=== PATIENT | female | born 1965 | race Caucasian/White ===

== ENCOUNTER 2017-01-09 09:46 | Emergency (ER) | payer BC ==
[~2017-01-09] VITALS: Ht 165.1 cm; Wt 62.0 kg
[~2017-01-09 09:46] MED LIST: ATOR20TA38 PO; GABA100C14 PO; HYDR-3498 PO; HYDR-3720 PO; ONDA4TAB35 PO; TAMS-14 PO
[2017-01-09 09:49] VITALS: Ht 165.1 cm; Wt 62.0 kg
[2017-01-09] MEDS ORDERED: ONDANSETRON (ODT) 4 MG TAB ODT STA ×2 (10:27→11:51)
[2017-01-09] MEDS ORDERED: HYDROmorphONE 1 MG/ML SYG IM STA ×2 (10:27→11:51)
[2017-01-09] MEDS ORDERED: DEXAMETHASONE 10 MG/ML 1 ML INJ IM ONE (10:30)
--- NOTE | 2017-01-09 11:03 | RADRPT ---
PROCEDURE: CT Cervical Spine without contrast. CLINICAL INDICATION: Right-sided radiculopathy. TECHNIQUE: A CT of the cervical spine was performed on a [employer] 64-slice CT scanner uti lizing thin section axial images from the skull base through the thoracic inlet. Sagittal and coron al reformatted images were made. The CTDIvol is 22.3 mGy and the DLP is 506.1 mGycm. COMPARISON: No. FINDINGS: The fourth ventricle and cerebellum are unremarkable. The base of the skull and mastoid air cells a re normal. C1 and C2 are intact. No fracture is evident. There are degenerative changes around the atlanto-axial joint with spurs noted off the superior aspects of the anterior arch of C1 and ventral superior aspect of the odontoid process. C2-3: The disc is normal in height. No significant disk bulge or protrusion is evident. There is no central canal stenosis or foraminal narrowing. C3 is unremarkable. C3-4: The disc is normal in height. No significant disk bulge or protrusion is evident. There is no central canal stenosis or foraminal narrowing. C4 is unremarkable. C4-5: The disc is normal in height. No significant disk bulge or protrusion is evident. There is no central canal stenosis or foraminal narrowing. C5 is unremarkable. C5-6: The disc is normal in height. No significant disk bulge or protrusion is evident. There is no central canal stenosis or foraminal narrowing. C6 is unremarkable. C6-7: The disc is normal in height. No significant disk bulge or protrusion is evident. There is no central canal stenosis or foraminal narrowing. C7 is unremarkable. C7-T1: The disc is normal in height. No significant disk bulge or protrusion is evident. There is no central canal stenosis or foraminal narrowing. T1 is unremarkable. There is mild ventral spondylosis at T1-2 and at T2-3. The pulmonary vasculature and visible lung fi elds are normal. The soft tissues of the neck are unremarkable. IMPRESSION: 1. No evidence of acute cervical spine fracture. 2. Spondylosis of the upper thoracic spine. RPTAT:AAJJ Reilly Parker, Physician Date Time Electronically viewed and signed by Reilly Parker, Physician on 01/09/2017 11:03 JM/
[2017-01-09] MEDS ORDERED: HYDR-902 PO (11:41)
[2017-01-09] MEDS ORDERED: PRED20TA PO (11:41)
[2017-01-09] MEDS ORDERED: GABA600T PO (11:41)
--- NOTE | 2017-01-09 11:47 | ERD ---
ER Documentation Chief Complaint Date/Time DATE: 01/09/17 TIME: 11:42 Chief Complaint Patient complains of bilateral arm pain HPI This is a 51-year-old female who has had a one-month history of right extremity painful burning that is worse at night with no swelling or weakness. The patient was diagnosed with peripheral neuropathy although she is not diabetic. She is currently taking Neurontin and diclofenac for pain. She describes the pain as a very dull ache with a burning sensation that is worse in the evening located at the right elbow and distally. She has no weakness or swelling. She says on occasion she has the same symptoms in the left upper extremity. No symptoms in the legs. No chest pain shortness of breath diaphoresis. She says the pain is constantly there every day for the past month. ROS All systems reviewed and are negative except as per history of present illness. Medications Home Meds Active Scripts Hydrocodone/Acetaminophen ([place] 10-325 Tablet) 1 Each Tablet, 1 TAB PO Q6H Y for PAIN, #30 TAB Prov:PHAN ANNA DO 01/09/17 Prednisone* (Prednisone*) 20 Mg Tab, 60 MG PO DAILY for 5 Days, TAB Prov:PHAN ANNA DO 01/09/17 Gabapentin* (Neurontin*) 600 Mg Tablet, 600 MG PO TID, #90 TAB Prov:PHAN ANNA DO 01/09/17 Ondansetron Hcl* (Zofran* ODT) 4 mg -ODT Tab.disper, 4 MG PO Q6 Y for NAUSEA AND /OR VOMITING, #10 TAB Prov:PHAN ANNA DO 02/27/16 Hydrocodone Bit-Acetaminophen* (Marion*) 7.5-325 Tablet, 1 TAB PO Q4H Y for PAIN , #14 TAB Prov:PHAN ANNA DO 02/27/16 Tamsulosin Hcl* (Flomax*) 0.4 Mg Cap.er.24h, 0.4 MG PO QPM, #7 CAP Prov:PHAN ANNA DO 02/27/16 Reported Medications Atorvastatin Calcium* (Atorvastatin Calcium*) 20 Mg Tablet, 20 MG PO QHS, #30 TAB 02/27/16 Hydrocodone Bit-Acetaminophen* (Marion*) 5-325 Mg Tab, 1 TAB PO TID Y for PAIN, TAB 02/27/16 Gabapentin* (Gabapentin*) 100 Mg Capsule, 100 MG PO TID, #90 CAP 02/27/16 Allergies Allergies: Coded Allergies: No Known Allergies (Verified Allergy, Mild, 02/27/16) PMhx/Soc History of Surgery: No Anesthesia Reaction: No Hx Neurological Disorder: No Hx Respiratory Disorders: No Hx Cardiac Disorders: No Hx Psychiatric Problems: No Hx Miscellaneous Medical Probl: Yes (mute) Hx Alcohol Use: No Hx Substance Use: No Hx Tobacco Use: No FmHx Family History: No coronary disease Physical Exam Vitals Vital Signs Date Time Temp Pulse Resp B/P Pulse Ox O2 Delivery O2 Flow Rate FiO2 01/09/17 09:49 98.5 87 20 121/57 99 Physical Exam Const: Well-developed, well-nourished Head: Atraumatic, normocephalic Eyes: Normal Conjunctiva, PERRLA, EOMI, normal sclera, no nystagmus ENT: Normal External Ears, Nose and Mouth, moist mucus membranes. Neck: Full range of motion. No meningismus, no lymphadenopathy. Resp: Clear to auscultation bilaterally, no wheezing, rhonchi, rales Cardio: Regular rate and rhythm, no murmurs, S1 S2 present Abd: Soft, non tender x 4, non distended. Normal bowel sounds, no guarding or rebound, no pulsitile abdominal masses or bruits Skin: No petechiae or rashes, no ecchymosis , no maculopapular rash Back: No midline or flank tenderness Ext: No cyanosis, or edema, FROM x 4, normal inspection, neurovascularly intact x 4, there is no swelling to the right upper extremity there is tenderness along the ulnar nerve at the elbow with some pain with range of motion of the digits strength is intact Neur: Awake and alert, STR 5/5 x 4, sensation intact x 4, no focal findings, cerebellum intact Psych: Normal Mood and Affect Results 24 hrs Current Medications Medications (Trade) Dose Ordered Sig/Gilberto Route PRN Reason Start Time Stop Time Status Last Admin Dose Admin Hydromorphone HCl (Dilaudid) 1 mg ONCE STAT IM 01/09/17 10:27 01/09/17 10:29 DC 01/09/17 10:57 Ondansetron HCl (Zofran Odt) 4 mg ONCE STAT ODT 01/09/17 10:27 01/09/17 10:29 DC 01/09/17 10:57 Dexamethasone (Decadron) 8 mg ONCE ONCE IM 01/09/17 10:30 01/09/17 10:31 DC 01/09/17 10:57 Procedures/MDM PROCEDURE: CT Cervical Spine without contrast. CLINICAL INDICATION: Right-sided radiculopathy. TECHNIQUE: A CT of the cervical spine was performed on a [employer]T 64- slice CT scanner utilizing thin section axial images from the skull base through the thoracic inlet. Sagittal and coronal reformatted images were made. The CTDIvol is 22.3 mGy and the DLP is 506.1 mGycm. COMPARISON: No. FINDINGS: The fourth ventricle and cerebellum are unremarkable. The base of the skull and mastoid air cells are normal. C1 and C2 are intact. No fracture is evident. There are degenerative changes around the atlanto-axial joint with spurs noted off the superior aspects of the anterior arch of C1 and ventral superior aspect of the odontoid process. C2-3: The disc is normal in height. No significant disk bulge or protrusion is evident. There is no central canal stenosis or foraminal narrowing. C3 is unremarkable. C3-4: The disc is normal in height. No significant disk bulge or protrusion is evident. There is no central canal stenosis or foraminal narrowing. C4 is unremarkable. C4-5: The disc is normal in height. No significant disk bulge or protrusion is evident. There is no central canal stenosis or foraminal narrowing. C5 is unremarkable. C5-6: The disc is normal in height. No significant disk bulge or protrusion is evident. There is no central canal stenosis or foraminal narrowing. C6 is unremarkable. C6-7: The disc is normal in height. No significant disk bulge or protrusion is evident. There is no central canal stenosis or foraminal narrowing. C7 is unremarkable. C7-T1: The disc is normal in height. No significant disk bulge or protrusion is evident. There is no central canal stenosis or foraminal narrowing. T1 is unremarkable. There is mild ventral spondylosis at T1-2 and at T2-3. The pulmonary vasculature and visible lung mac are normal. The soft tissues of the neck are unremarkable. IMPRESSION: 1. No evidence of acute cervical spine fracture. 2. Spondylosis of the upper thoracic spine. RPTAT:AAJJ Reilly Parker Physician Date Time Electronically viewed and signed by Reilly Parker Physician on 01/09/2017 11:03 JM/ CC: PHAN ANNA DO We will increase the dose of Neurontin to 600 3 times daily and provide Marion and prednisone Departure Diagnosis: Primary Impression: Peripheral neuropathy Peripheral neuropathy type: polyneuropathy, unspecified Qualified Code: G62.9 - Peripheral polyneuropathy Condition: Stable Patient Instructions: What Is Peripheral Neuropathy?, Treating Peripheral Neuropathy PHAN ANNA DO Jan 09, 2017 11:47
[2017-01-09 12:39] VITALS: BP 122/66; PULSE 74; RESP 16; TEMP 98.4
== END 2017-01-09 12:40 | disposition home or self-care (01) ==
LOC: FTE 09:46
DX: G62.9 Polyneuropathy, unspecified (principal)
CPT/HCPCS: 72125; 96372; 99285; J1100; J1170; Z7610

== ENCOUNTER 2017-02-07 16:22 | Emergency (ER) | END 2017-02-07 18:54 | disposition home or self-care (01) | DX: S52.614A Nondisplaced fracture of right ulna styloid process, initial encounter for closed fracture (principal); S59.291A Other physeal fracture of lower end of radius, right arm, initial encounter for closed fracture; W08.XXXA Fall from other furniture, initial encounter; Y92.9 Unspecified place or not applicable | CPT/HCPCS: 29125; 73090; 73110; 99283; Z7610 ==

== ENCOUNTER 2018-10-23 20:11 | Emergency (ER) | payer BC ==
[~2018-10-23] VITALS: Ht 152.4 cm; Wt 125.0 kg
[~2018-10-23 20:11] MED LIST changes: +GABA600T PO; +HYDR-3980 PO; +HYDR-4011 PO; +PRED20TA PO
[2018-10-23 20:21] VITALS: Ht 152.4 cm; Wt 125.0 kg
--- NOTE | 2018-10-23 23:14 | ERD ---
ER Documentation Chief Complaint Chief Complaint CONSTIPATION X'S 3 DAYS, LOWER BACK, ABD PAIN HPI 53-year-old female, presents to the emergency department, complaining of abdominal discomfort, associated with constipation for 3 days. The patient denies fevers, no chills, no nausea or vomiting. ROS All systems reviewed and are negative except as per history of present illness. Medications Home Meds Active Scripts Polyethylene Glycol* (Miralax*) 17 Gm Powd.pack, 17 GM PO DAILY, #7 Prov:PRINCE REY MD 10/24/18 Docusate Sodium* (Colace*) 100 Mg Capsule, 100 MG PO TID PRN for CONSTIPATION, #30 CAP Prov:PRINCE REY MD 10/24/18 Magnesium Hydroxide* (Milk Of Magnesia*) 400 Mg/5 Ml Oral.susp, 30 ML PO BID for 5 Days, #1 BOTTLE Prov:PRINCE REY MD 10/24/18 Hydrocodone/Acetaminophen ([place] 5-325 Tablet) 1 Each Tablet, 1-2 TAB PO Q6H PRN for PAIN, #30 TAB Prov:MAC TOLEDO PA-C 02/07/17 Hydrocodone/Acetaminophen ([place] 10-325 Tablet) 1 Each Tablet, 1 TAB PO Q6H PRN for PAIN, #30 TAB Prov:PHAN ANNA DO 01/09/17 Prednisone* (Prednisone*) 20 Mg Tab, 60 MG PO DAILY for 5 Days, TAB Prov:PHAN ANNA DO 01/09/17 Gabapentin* (Neurontin*) 600 Mg Tablet, 600 MG PO TID, #90 TAB Prov:PHAN ANNA DO 01/09/17 Ondansetron Hcl* (Zofran* ODT) 4 mg -ODT Tab.disper, 4 MG PO Q6 PRN for NAUSEA AND/OR VOMITING, #10 TAB Prov:PHAN ANNA DO 02/27/16 Hydrocodone Bit-Acetaminophen* ([place]*) 7.5-325 Tablet, 1 TAB PO Q4H PRN for PAIN, #14 TAB Prov:PHAN ANNA DO 02/27/16 Tamsulosin Hcl* (Flomax*) 0.4 Mg Cap.er.24h, 0.4 MG PO QPM, #7 CAP Prov:PHAN ANNA DO 02/27/16 Reported Medications Atorvastatin Calcium* (Atorvastatin Calcium*) 20 Mg Tablet, 20 MG PO QHS, #30 TAB 02/27/16 Hydrocodone Bit-Acetaminophen* ([place]*) 5-325 Mg Tab, 1 TAB PO TID PRN for PAIN, TAB 02/27/16 Gabapentin* (Gabapentin*) 100 Mg Capsule, 100 MG PO TID, #90 CAP 02/27/16 Allergies Allergies: Coded Allergies: No Known Allergies (Verified Allergy, Mild, 02/07/17) PMhx/Soc History of Surgery: No Anesthesia Reaction: No Hx Neurological Disorder: No Hx Respiratory Disorders: No Hx Cardiac Disorders: No Hx Psychiatric Problems: No Hx Miscellaneous Medical Probl: Yes (mute Deaf, parapelegic) Hx Alcohol Use: No Hx Substance Use: No Hx Tobacco Use: No Physical Exam Vitals Vital Signs Date Temp Pulse Resp B/P (MAP) Pulse Ox O2 O2 Flow FiO2 Time Delivery Rate 10/24/18 98.0 73 18 98/54 (69) 99 Room Air 03:21 10/23/18 98.3 83 20 99/51 (67) 97 20:21 Physical Exam Const: No acute distress Head: Atraumatic Eyes: Normal Conjunctiva ENT: Normal External Ears, Nose and Mouth. Neck: Full range of motion. No meningismus. Resp: Clear to auscultation bilaterally Cardio: Regular rate and rhythm, no murmurs Abd: Soft, non tender, non distended. Normal bowel sounds Skin: No petechiae or rashes Back: No midline or flank tenderness Ext: No cyanosis, or edema Neur: Awake and alert Psych: Normal Mood and Affect Result Diagram: 10/24/18 0018 10/24/18 0018 Results 24 hrs Laboratory Tests Test 10/24/18 00:18 White Blood Count 4.3 10^3/ul Red Blood Count 4.45 10^6/ul Hemoglobin 13.2 g/dl Hematocrit 40.9 % Mean Corpuscular Volume 91.9 fl Mean Corpuscular Hemoglobin 29.7 pg Mean Corpuscular Hemoglobin Concent 32.3 g/dl Red Cell Distribution Width 12.5 % Platelet Count 145 10^3/UL Mean Platelet Volume 11.5 fl Immature Granulocytes % 0.200 % Neutrophils % 37.8 % Lymphocytes % 44.0 % Monocytes % 16.9 % Eosinophils % 0.9 % Basophils % 0.2 % Nucleated Red Blood Cells % 0.0 /100WBC Immature Granulocytes # 0.010 10^3/ul Neutrophils # 1.6 10^3/ul Lymphocytes # 1.9 10^3/ul Monocytes # 0.7 10^3/ul Eosinophils # 0.0 10^3/ul Basophils # 0.0 10^3/ul Nucleated Red Blood Cells # 0.0 10^3/ul Urine Color YELLOW Urine Clarity CLEAR Urine pH 6.0 Urine Specific [place] 1.010 Urine Ketones 1+ mg/dL Urine Nitrite NEGATIVE mg/dL Urine Bilirubin NEGATIVE mg/dL Urine Urobilinogen NEGATIVE mg/dL Urine Leukocyte Esterase NEGATIVE Ramos/ul Urine Microscopic RBC 24 /HPF Urine Microscopic WBC 7 /HPF Urine Mucus FEW /HPF Urine Hemoglobin 3+ mg/dL Urine Glucose NEGATIVE mg/dL Urine Total Protein NEGATIVE mg/dl Sodium Level 139 mmol/L Potassium Level 4.0 mmol/L Chloride Level 101 mmol/L Carbon Dioxide Level 28 mmol/L Anion Gap 10 Blood Urea Nitrogen 13 mg/dl Creatinine 0.58 mg/dl Est Glomerular Filtrat Rate mL/min > 60 mL/min Glucose Level 83 mg/dl Calcium Level 9.0 mg/dl Total Bilirubin 0.3 mg/dl Direct Bilirubin 0.00 mg/dl Indirect Bilirubin 0.3 mg/dl Aspartate Amino Transf (AST/SGOT) 44 IU/L Alanine Aminotransferase (ALT/SGPT) 57 IU/L Alkaline Phosphatase 121 IU/L Total Protein 6.9 g/dl Albumin 3.8 g/dl Globulin 3.10 g/dl Albumin/Globulin Ratio 1.22 Lipase 48 U/L Serum HCG, Qualitative NEGATIVE Current Medications Medications Dose Sig/Gilberto Start Time Status Last (Trade) Ordered Route PRN Stop Time Admin Dose Reason Admin Sodium 1,000 ml @ Q1H STAT 10/23/18 DC 10/24/18 Chloride 1,000 mls/hr IV 23:36 00:23 10/24/18 00:35 650 mg ONCE ONCE 10/24/18 DC 10/24/18 Acetaminophen PO 01:00 01:04 (Tylenol 10/24/18 01:01 Tab) Ketorolac 15 mg ONCE STAT 10/24/18 DC 10/24/18 Tromethamine IV 00:44 01:04 (Toradol) 10/24/18 00:45 Ondansetron 4 mg ONCE STAT 10/24/18 DC 10/24/18 HCl (Zofran IV 01:01 01:04 Inj) 10/24/18 01:02 DIAGNOSTIC IMAGING REPORT Patient: TABITHA SAMUEL : 1965 Age: 53 Sex: F MR #: [id number] DOS: 10/23/18 2336 Ordering MD: PRINCE REY MD Location: [facility] Room/Bed: PROCEDURE: XR Abdomen. CLINICAL INDICATION: Abdominal pain TECHNIQUE: Upright and supine abdominal x-rays were obtained. COMPARISON: CT from the 02/27/2016 FINDINGS: The bowel gas pattern is nonobstructive. No definite free air is seen. Calcified pelvic phleboliths. Right upper quadrant clips. The lung bases are clear. The visualized bony skeleton is unremarkable. IMPRESSION: No definite obstruction or free air. RPTAT: HLBE Patient: TABITHA SAMUEL : 1965 Age: 53 Sex: F MR #: [id number] DOS: 10/23/18 2336 Ordering MD: PRINCE REY MD Location: [facility] Room/Bed: PROCEDURE: CT abdomen and pelvis without contrast. CLINICAL INDICATION: 53-year-old female. Abdomen pain. TECHNIQUE: CT scan of the abdomen and pelvis without contrast was performed on a multi-slice CT scanner utilizing axial imaging from the lung bases through the pubis symphysis. One or more the following does reduction techniques were utilized: Automated exposure control, adjustment of the mA/ or kV according to patient's size, or use of iterative reconstruction technique. Sagittal and coronal reformatted images were made. DICOM images are available for review. The CTDIvol is 6.24 mGy and the DLP is 337.35 mGycm. COMPARISON: CT abdomen pelvis 02/27/2016 FINDINGS: CT abdomen Visualized lung bases: Clear. No significant pleural or pericardial effusion. Liver: Limited evaluation without IV contrast. No gross lesion. Gallbladder and bile ducts: Previous cholecystectomy. No biliary ductal dilatation. Spleen: Normal appearance. Pancreas: Normal appearance. No ductal dilatation. No mass. No peripancreatic stranding. Adrenal glands: Normal appearance. Kidneys: No hydronephrosis or renal stones. Vasculature: No abdominal aortic aneurysm. Calcified plaque absent. Negative IVC. Lymph nodes: No adenopathy. GI: No evidence of obstruction or bowel wall thickening. Peritoneal cavity: No free fluid or free air. CT pelvis GI: Negative terminal ileum. Negative appendix. Negative sigmoid colon. Negative rectum. : Normal appearing distal ureters and urinary bladder. Normal uterus. No adnexal masses. Multiple small uterine and adnexal calcifications. Peritoneal cavity: No free fluid or loculated fluid collections. Lymph nodes: No adenopathy. Osseous structures: The bones are demineralized. L1 vertebral body hemangioma. No acute endplate fracture. IMPRESSION: 1. Previous cholecystectomy. 2. Multiple small uterine and adnexal calcifications. 3. Etiology of the patient's abdominal pain is not ascertained from these images. Procedures/MDM Differential diagnosis include but not limited to: bowel Obstruction, ileus, fecal impaction. Low suspicion for acute abdomen. Physical examination and clinical presentation consistent most likely with constipation without evidence of impaction. During the ED course the patient remained stable, no new complaints. Treatment options, results and clinical impression discussed with the patient who agrees with management. The patient is stable to be treated outpatient and will be discharged home; some side effects of prescribed medications were reviewed. The patient was instructed to follow up with the primary care provider in the next 48h. If symptoms persist, worsen or new symptoms develop, then patient should return to the ED immediately. Instructions explained and given directly by me to the patient with acknowledgment and demonstrated understanding. Disclaimer: Inadvertent spelling and grammatical errors are likely due to EHR/dictation software use and do not reflect on the overall quality of patient care. Also, please note that the electronic time recorded on this note does not necessarily reflect the actual time of the patient encounter. Departure Diagnosis: Primary Impression: Constipation Condition: Stable Additional Instructions: Thank you very much for allowing us to participate in your care. Your health and safety is our top priority at [facility]. Call your primary care doctor TOMORROW for an appointment during the next 2-4 days and bring all the information and medications prescribed. Have prescriptions filled and follow precisely the directions on the label. If the symptoms get worse and your provider is unavailable, return to the Emergency Department immediately. PRINCE REY MD Oct 23, 2018 23:14
[2018-10-23] MEDS ORDERED: SOD CHLORIDE 0.9% 1,000 ML IV STA (23:36)
[2018-10-24] MEDS ORDERED: KETOROLAC 15 MG INJ IV STA (00:44)
[2018-10-24] MEDS ORDERED: ACETAMINOPHEN 325 MG TAB PO ONE (01:00)
[2018-10-24] MEDS ORDERED: ONDANSETRON 4 MG INJ IV STA (01:01)
[2018-10-24] MEDS ORDERED: DOCU-144 PO (03:04)
[2018-10-24] MEDS ORDERED: POLY17PO6 PO (03:04)
[2018-10-24] MEDS ORDERED: MAGN400O19 PO (03:04)
[2018-10-24 03:21] VITALS: BP 98/54; PULSE 73; RESP 18
== END 2018-10-24 03:22 | disposition home or self-care (01) ==
LOC: FTE 20:11
DX: K59.00 Constipation, unspecified (principal)
CPT/HCPCS: 36415; 74019; 74176; 80053; 81001; 83690; 84703; 85025; 87086; 96361; 96374; 96375; 99285; J1885; J2405; J7030; Z7610